=== PATIENT | male | born 1965 | race Two or more races ===

== ENCOUNTER 2022-08-30 10:40 | Emergency (ER) | payer MEDICAID, OTHER ==
[~2022-08-30] VITALS: Ht 175.3 cm; Wt 112.5 kg
[2022-08-30 11:13] VITALS: BP 181/91
[2022-08-30] MEDS ORDERED: CIPR-173 PO (12:44)
== END 2022-08-30 12:59 | disposition home or self-care (01) ==
LOC: ER 10:40
DX: S90.921D Unspecified superficial injury of right foot, subsequent encounter (principal); E11.9 Type 2 diabetes mellitus without complications; X58.XXXD Exposure to other specified factors, subsequent encounter